=== PATIENT | female | born 1990 | race Caucasian/White ===

== ENCOUNTER 2020-08-05 09:11 | Emergency (ER) | payer BC, SELFPAY ==
[2020-08-05 09:16] VITALS: BP 103/80; PULSE 66; RESP 17; TEMP 36; O2SAT 99; BMI 22.8
--- NOTE | 2020-08-05 09:39 | EKG12_ITS ---
Test Reason : SOB Blood Pressure : / mmHG Vent. Rate : 067 BPM Atrial Rate : 067 BPM P-R Int : 152 ms QRS Dur : 086 ms QT Int : 430 ms P-R-T Axes : 075 068 046 degrees QTc Int : 454 ms Normal sinus rhythm with sinus arrhythmia Normal ECG Confirmed by MARIIA ESTRADA, EDIE ([id number]), editor farm journal DAI ESPARZA ([id number]) on 08/08/2020 9:33:58 AM Referred By: JASMIN Confirmed By:EDIE CHIANG MD
--- NOTE | 2020-08-05 09:40 | ED.DCSUM_ITS ---
History of Present Illness Chief Complaint: Shortness of Breath Informant: Patient Onset: Month(s) - 1 month Timing: Intermittent, Lasts - Approximately 1 minute Narrative: Patient presents secondary to intermittent shortness of breath any numbness and tingling sensation in her chest. She describes a pins and needle sensation in her chest that will come on for no particular reason. It last for approximate 1 minute and then spontaneously resolves. It will happen at different times of the day. She states today she started getting sharp needlelike pain at different points to her body. It again would only last a minute or so and then resolved. Patient does report exposure to Covid and family members, but did test negative on the third and has not had symptoms since that time. Past Medical History - Allergies and Home Meds Allergies/Adverse Reactions: Allergies No Known Allergies Allergy (Verified 08/05/20 09:16) Primary Care Physician: Care Physician,No Primary [Primary Care Provider] - Past Medical History: None Lives: With Family Smoking Status: Never smoker Review of Systems General: Denies: Chills, Fever Eyes: Denies: Visual changes - bilaterally ENT: Denies: Bilateral ear pain Cardiovascular: Reports: Chest pain - Wgom-[id number] sensation Respiratory: Reports: Dyspnea. Denies: Cough Gastrointestinal: Denies: Abdominal pain, Vomiting, Diarrhea Genitourinary: Denies: Dysuria Musculoskeletal: Reports: Extremity Pain. Denies: Swelling Neurological: Denies: Headache Hematologic: Denies: Easy bruising, Easy bleeding Allergy: Denies: Uticaria Physical Exam Vital Signs/Narrative: Vital Signs Temp Pulse Resp BP Pulse Ox 08/05/20 09:16 96.8 F L 66 17 103/80 99 Inital Vital Signs reviewed: Yes General: Well nourished, Well developed Head: Normocephalic ENT: Moist mucous membranes Neck: Supple Cardiovascular: Regular rate, Regular rhythm, - - Strong distal pulses throughout Respiratory: No distress, CTA bilaterally Abdomen: Soft, Nontender Extremities: Nontender Skin: Normal color, No rash Neurological: Alert, Oriented x3, Normal Strength, Normal Sensation Psychological: Normal affect Diagnostic/Tx/Re-eval Chest X-Ray - ED: 2 View, Read by ED Physician, Normal, Heart, Lungs, Mediastinum Impressions Chest X-Ray 08/05/20 10:00 IMPRESSION: Normal x-ray examination of the chest. Electronically Signed: Angel Kern MD at 10:20 EST Tel , Service support , 08/05/20 10:00 Chest PA and Lateral [RAD] Stat Laboratory Results 08/05/20 08/05/20 09:50 09:50 WBC 7.2 RBC 3.70 L Hgb 10.5 L Hct 32.9 L MCV 88.9 MCH 28.4 MCHC 31.9 L RDW Std Deviation 46.5 H RDW Coeff of Meagan 14.6 Plt Count 181 MPV 12.4 H Immature Gran % (Auto) 0.100 Neut % (Auto) 53.2 Lymph % (Auto) 34.8 [place] % (Auto) 10.2 H Eos % (Auto) 1.1 Baso % (Auto) 0.6 Absolute Neuts (auto) 3.9 Absolute Lymphs (auto) 2.52 Nucleated RBC % 0 Sodium 143 Potassium 3.3 L Chloride 113 H Carbon Dioxide 25.0 Anion Gap 5 BUN 18 Creatinine 0.62 Estim Creat Clear Calc 117.70 Est GFR (MDRD) Af Amer 147 Est GFR (MDRD) Non-Af 121 BUN/Creatinine Ratio 28.8 H Glucose 89 Calcium 8.1 L - EKG Initial EKG Interpretation: Sinus Rhythm - Sinus at 67 with no acute ischemia. - Medical Decision Making EKG and chest x-ray are unremarkable. Lab work reveals mildly low potassium at 3.3. She will be given a few days of replacement at home. Patient will follow up with her PCP. ED Disposition - Plan for ED Patient: Disposition: Home or Assisted Living Diagnosis: Paresthesias, Atypical chest pain Instructions: ED Paraesthesias, ED Chest Pain, Uncertain Cause Prescriptions: Potassium Chloride [K-Dur] 20 meq PO BID #[id number] tab Transmission Status: Pending to [facility] [id number] Referrals: Mira Parnell DO [STAFF PHYSICIAN] - 1-2 Weeks
--- NOTE | 2020-08-05 10:00 | RAD_ITS ---
STUDY: X-RAY CHEST REASON FOR EXAM: Female, 29 years old. chest pain, SOB TECHNIQUE: PA and lateral views of the chest. COMPARISON: None. FINDINGS: The lungs are clear and expanded. There is no demonstrated pleural abnormality. Normal size heart. Normal mediastinum and crystal. Normal visualized pulmonary arteries. Normal visualized aortic arch and descending thoracic aorta. Normal visualized thoracic spine. Normal visualized ribs, clavicles, and shoulders. There is no demonstrated abnormality of the visualized soft tissue structures of the upper abdomen. RAD/Chest PA and Lateral IMPRESSION: Normal x-ray examination of the chest. Electronically Signed: Angel Kern MD at 10:20 EST Tel , Service support ,
[2020-08-05 10:09] LABS: Absolute Lymphocyte Count 2.52 X10^3/uL (0.83-4.51); Absolute Neutrophil Count 3.9 X10^3/uL (2.0-7.7); Anion Gap 5 (5-15); BUN 18 mg/dL (7-18); BUN/Creat Ratio 28.8 RATIO (10-20); Basophil# 0.04 X10^3/uL; Basophil% 0.6 % (0-1); Calcium,Total 8.1 mg/dL (8.5-10.1); Chloride 113 mmol/L (98-107); Creatinine, Serum 0.62 mg/dL (0.55-1.02); EST Glomerular Filtration Rate 121 mL/min (>60); Eosinophil# 0.08 X10^3/uL; Eosinophils% 1.1 % (0-5); Est Glom Filt Rate - Afr Amer 147 mL/min (>60); Glucose 89 mg/dL (74-106); Hematocrit 32.9 % (37-47); Hemoglobin 10.5 g/dL (12.0-15.0); Lymphocyte # 2.52 X10^3/ul (4.0); Lymphocyte % 34.8 % (19-41); Mean Corp Hgb Conc 31.9 g/dL (32-36); Mean Corpuscular Hgb 28.4 pg (27.0-32.0); Mean Corpuscular Volume 88.9 fL (81-99); Mean Platelet Vol. 12.4 fl (6.2-12.0); Monocyte# 0.74 X10^3/uL; Monocyte% 10.2 % (0-10); NRBC Flagged by Analyzer 0 % (0-5); Neutrophil # 3.85 X10^3/uL (2.7-7.7); Neutrophil % 53.2 % (47-70); Platelet Count 181 K/mm3 (150-450); Potassium 3.3 mmol/L (3.5-5.1); RBC Distribution Width CV 14.6 % (11.6-14.6); RBC Distribution Width SD 46.5 fl (35.1-43.9); Sodium Level 143 mmol/L (136-145); White Blood Count 7.2 K/mm3 (4.4-11.0)
[2020-08-05 10:35] VITALS: RESP 16
== END 2020-08-05 10:40 | disposition home or self-care (01) ==
PROVIDERS: Emergency Provider Emergency Medicine
DX: R20.2 Paresthesia of skin (principal); R07.89 Other chest pain; E87.6 Hypokalemia; Z20.828 Contact with and (suspected) exposure to other viral communicable diseases
CPT/HCPCS: 71046; 80048; 85025; 93005; 99282